=== PATIENT | female | born 1955 | race Caucasian/White ===

== ENCOUNTER 2024-12-07 08:14 | Outpatient (REF) | payer MEDICARE, SELFPAY ==
--- OUTSIDE RECORDS SUMMARY | 2024-12-07 08:20 | XMS_ITS | Encounter Summary ---
Author Organization [facility] Address [address] [place] [address] Care Team Providers Care Fiscal Technician Name Role Phone Katheryn Jacques CNP Primary Care Provider [phone] Sue Day DO Primary Care Provider [phone] Encounter Details Date Type Department Care Team (Late st Contact Info) Description 12/01/2022 Orders Only [facility] MEDICAL [address] [place] [address] Provider, Historical, Social History Tobacco Use Types Packs/Day Years Used Date Smoking Tobacco: Never Smokeless Tobacco: Never Alcohol Use Standard Drinks/Week Comments Yes 0 (1 standard drink = 0.6 oz pur e alcohol) Comments Unknown Sex and Gender Information Value Date Recorded Sex Assigned at Female 10/07/2022 3:58 PM EDT Legal Sex Female 8:38 PM EDT Gender Identity Female 10/07/2022 3:58 PM EDT Sexual Orientation Straight 10/16/2024 4: 20 PM EDT documented as of this encounter Plan of Treatment Not on file documented as of this encounter Procedures Procedure Name Priority Date/Time Associated Diagnosis Comments HM PAP/HPV Routine 11/23/2022 documented in this encounter Results * Hm Pap Smear (11/23/2022) us Historical Provider HEALTH MAINTENANCE Final Result documented in this encounter Visit Diagnoses Not on filedocumented in this encounter Care Teams Fiscal Technician Relationship Specialty Start Date End Date Katheryn Jacques CNP [address] [place] [address] PCP - General Family Medicine 06/10/22 04/10/23 Sue Day DO [address] [place] [address] PCP - General Family Medicine 04/11/23 documented as of this encounter
== END 2024-12-07 08:15 | disposition home or self-care (01) ==
LOC: CF 08:14
DX: Z13.89 Encounter for screening for other disorder (principal)